=== PATIENT | male | born 1985 | race Caucasian/White ===

== ENCOUNTER 2020-05-08 01:48 | Emergency (ER) | payer OTHER ==
[~2020-05-08] VITALS: Ht 170.2 cm; Wt 81.6 kg
--- NOTE | 2020-05-08 02:00 | NUR ---
ER MD AT BEDSIDE TO EVAL PT WITH ORDERS RECEIVED.
--- NOTE | 2020-05-08 02:00 | NUR ---
TO ER BED 13 BIB [employer] C/O TACHYCARDIA S/P COCCAINE USE. PT AAOX4 NO ACUTE DISTRESS NOTED, RESP EVEN AND UNLABORED. PT DENIES PAIN OR DISCOMFORT AT THIS TIME. PLACE PT ON CARDIAC MONITORING, CONTINUOUS POX. PENDING ER MD COCHRAN.
[2020-05-08] MEDS ORDERED: LABETALOL HCL IV 100MG VIAL ONE (02:18)
[2020-05-08] MEDS ORDERED: LORAZEPAM INJ 2 MG/ML VIAL ONE (02:18)
[2020-05-08] MEDS ORDERED: LABETALOL 20 MG/4 ML VIAL IV ONE ×2 (02:30→03:30)
[2020-05-08] MEDS ORDERED: LORAZEPAM INJ 2 MG/ML VIAL IV ONE (02:30)
[2020-05-08 03:19] VITALS: BP 132/82
--- NOTE | 2020-05-08 03:19 | NUR ---
Patient discharged in stable condition. Written and verbal after care instructions given. Patient verbalizes understanding of instruction. Pt medically cleared.
--- NOTE | 2020-05-08 03:19 | NUR ---
IV removed. Catheter intact and site benign. Pressure and 4x4 applied to site. No bleeding noted.
== END 2020-05-08 03:20 ==
LOC: ER 01:48
DX: F14.129 Cocaine abuse with intoxication, unspecified (principal); R94.31 Abnormal electrocardiogram [ECG] [EKG]
CPT/HCPCS: 93005; 96374; 99283; J2060; J3490 ×3